=== PATIENT | male | born 1950 | race Caucasian/White ===

== ENCOUNTER 2021-01-02 16:43 | Inpatient (IN) | payer OTHER, MEDICARE ==
[~2021-01-02] VITALS: Ht 182.9 cm; Wt 77.5 kg
[~2021-01-02 16:43] MED LIST: ASPI81EC PO; CIPR500 PO; CITA20 PO; CYCL10 PO; DOXY100 PO; GABA300 PO; METF500 PO; OXYACE5T PO; ROSU10TA PO; TAMS.4ER PO
[2021-01-02 17:14] LABS: BASOPHILS ABSOLUTE AUTO 0.05 K/mm3 (0.00-0.23); BASOPHILS PERCENT AUTO 0 % (0-2); EOSINOPHILS PERCENT AUTO 0 % (0-6); Hematocrit 38.6 % (37.0-53.0); Hemoglobin 11.7 g/dL (13.5-17.5); IMMATURE GRAN ABSOLUTE AUTO 0.08 K/mm3 (0.00-0.10); IMMATURE GRAN PERCENT AUTO 0 % (0-1); LYMPHOCYTES ABSOLUTE AUTO 2.27 K/mm3 (0.84-5.20); LYMPHOCYTES PERCENT AUTO 12 % (21-46); MONOCYTES ABSOLUTE AUTO 0.99 K/mm3 (0.16-1.47); MONOCYTES PERCENT AUTO 5 % (4-13); Mean Corpuscular HGB 24.3 pg (26.0-34.0); Mean Corpuscular HGB Conc 30.3 g/dL (31.5-36.5); Mean Corpuscular Volume 80 fL (80-100); NEUTROPHILS ABSOLUTE AUTO 15.72 K/mm3 (1.96-9.15); NEUTROPHILS PERCENT AUTO 82 % (41-73); Platelet Count 398 K/mm3 (150-400); RDW Standard Deviation 43.5 fL (35.1-46.3); Red Blood Cell Count 4.82 M/mm3 (4.30-5.90); White Blood Cell Count 19.11 K/mm3 (4.00-11.30)
[2021-01-02 17:38] LABS: Alanine Aminotransfer (ALT/SGP 23 U/L (12-78); Albumin, Blood 3.5 g/dL (3.4-5.0); Albumin/Globulin Ratio 0.7 (0.8-1.8); Alk Phos 106 U/L (50-136); Anion Gap 13 mmol/L (6-16); Aspartate Aminotrans (AST/SGOT 58 U/L (12-37); Bilirubin, Total 0.5 mg/dL (0.1-1.0); Blood Urea Nitrogen 19 mg/dL (8-24); Bun/Creatinine Ratio 20.1 (12.0-20.0); CO2, Blood 20 mmol/L (21-32); Calcium, Blood 9.6 mg/dL (8.5-10.1); Chloride, Blood 100 mmol/L (98-108); Creatinine, Blood 0.95 mg/dL (0.60-1.20); Globulin, Blood 4.9 g/dL (2.2-4.0); Glomerular Filtration Rate >60 (60-); Glucose, Blood 241 mg/dL (70-99); Potassium, Blood 4.2 mmol/L (3.5-5.5); Sodium, Blood 133 mmol/L (136-145); Total Protein, Blood 8.4 g/dL (6.4-8.2)
[2021-01-02] MEDS ORDERED: ATOR80 PO (20:34)
[2021-01-02] MEDS ORDERED: GLIP5 PO (20:36)
[2021-01-02] MEDS ORDERED: HYDROCODONE-AC1 EAC7 PO (20:37)
[2021-01-02] MEDS ORDERED: METF500 PO (20:37)
[2021-01-02] MEDS ORDERED: BASAGLAR K100 UNIT/1 SC (20:38)
[2021-01-02] MEDS ORDERED: Calan Sr120 MG PO (20:39)
[2021-01-02] MEDS ORDERED: OMEP20ER PO (20:40)
[2021-01-02] MEDS ORDERED: SERT100 PO (20:40)
[2021-01-02] MEDS ORDERED: ALBU90OI INH (20:41)
[2021-01-02] MEDS ORDERED: ALBU2.5V5 NEB (20:42)
[2021-01-02] MEDS ORDERED: STIOLTO RESPIMAT4 G1 INH (20:42)
[2021-01-02] MEDS ORDERED: LOSARTAN POTAS100 M1 PO (20:43)
[2021-01-02] MEDS ORDERED: NARCAN4 M1 (20:44)
[2021-01-02] MEDS ORDERED: Aspir 8181 MG PO (21:05)
[2021-01-02] MEDS ORDERED: ASCO500 PO (21:05)
[2021-01-02] MEDS ORDERED: CYAN500 PO (21:06)
[2021-01-02] MEDS ORDERED: FISH OIL 1,2001 EAC7 PO (21:07)
[2021-01-02 21:13] LABS: International Normalized Ratio 0.98; Prothrombin Time Results 10.5 Sec (9.7-11.5)
[2021-01-02 23:52] LABS: Source, Urine Catheter
[2021-01-03 00:02] LABS: Blood, Urine 1+ (Neg); Glucose Qualitative, Urine 1+ (Neg); Ketones, Urine 1+ (Neg); Leukocyte Esterase, Urine 1+ (Neg); Nitrite, Urine Neg (Neg); Protein, Urine 2+ (Neg); Specific Gravity, Urine 1.025 (1.003-1.022); Urobilinogen, Urine 1+ (Normal)
[2021-01-03 00:07] LABS: U Amphetamine Screen Not Detected; U Barbituate Screen Not Detected; U Benzodiazapine Screen Not Detected; U Buprenorphine Screen Not Detected; U Cannabinoids Screen Not Detected; U Cocaine Screen Not Detected; U Methadone Screen Not Detected; U Methamphetamine Screen Not Detected; U Opiates Screen Not Detected; U Oxycodone Screen Not Detected; U Phencyclidine Screen Not Detected; U Propoxyphene Screen Not Detected
[2021-01-03 00:11] LABS: Appearance, Urine Clear (Clear); Bilirubin, Urine 1+ (Neg); Color, Urine Amber (P-Yellow)
[2021-01-03 00:17] LABS: Amorphous Light (0-Heavy); Bacteria Rare /hpf; Mucus Light (0-Heavy); Red Blood Cells, Urine 0-2 /hpf (0-2); Squamous Epithelial Cells Rare /hpf (Few); White Blood Cells, Urine 0-2 /hpf (0-5)
[2021-01-03 00:26] LABS: Adenovirus Not Detected (NOT DETECT); Coronavirus 229E Not Detected (NOT DETECT); Coronavirus HKU1 Not Detected (NOT DETECT); Coronavirus NL63 Not Detected (NOT DETECT)
[2021-01-03 00:27] LABS: Bordetella pertussis Not Detected (NOT DETECT); Chlamydophila pneumoniae Not Detected (NOT DETECT); Coronavirus OC43 Not Detected (NOT DETECT); Human Metapneumovirus Not Detected (NOT DETECT); Human Rhinovirus/Enterovirus Not Detected (NOT DETECT); Influenza A/2009-H1 Not Detected (NOT DETECT); Influenza A/H1 Not Detected (NOT DETECT); Influenza A/H3 Not Detected (NOT DETECT); Influenza B Not Detected (NOT DETECT); Mycoplasma pneumoniae Not Detected (NOT DETECT); Parainfluenza Virus 1 Not Detected (NOT DETECT); Parainfluenza Virus 2 Not Detected (NOT DETECT); Parainfluenza Virus 3 Not Detected (NOT DETECT); Parainfluenza Virus 4 Not Detected (NOT DETECT); Respiratory Syncytial Virus Not Detected (NOT DETECT); SARS-Cov-2 (COVID-19), BioFire Not Detected (NOT DETECT)
--- NOTE | 2021-01-03 00:30 | NUR ---
ASSUMED CARE/ICU ADMIT PT ARRIVES TO ICU VIA STRETCHER AT 2255 INTUBATED ON VENT, SEDATED WITH PROPOFOL AT 20 MCG/KG/MIN. PT TACHYPNEIC RR 30-40s, PEAK PRESSURES 30s, SCANT PINK/WHITE SECRETIONS-SUCTIONED FROM INLINE CATHETER. NOT OPENING EYES, FOLLOWING COMMANDS, OR MOVING, BUT FIGHTING VENTILATOR. 1L NS BOLUS FINISHING UP. PT HYPOTENSIVE, LEVOPHED STARTED AT 2329 AT 5 MCG/MIN, AND PROPOFOL INCREASED WHEN MAP > 60. CURRENTLY PROPOFOL IS AT 40 MCG/KG/MIN. VENT SETTINGS ARE AC 14/400/8/60%, SPO2 99-100%. PEAK PRESSURES REMAIN AT LOWER 30s, AND RR LOWER 30s. PT APPEARS TO BE MORE COMFORTABLE ON SEDATION, TOLERATING VENT WHEN NOT STIMULATED. WILL YOUSIF VENT WITH NOXIOUS STIMULI. ALEXI BEARD - DECIDED AGAINST HEPARIN GTTP. NASAL SWABS SENT FOR COVID PCR - CAME BACK NEGATIVE. CT SCAN CAME BACK NEGATIVE FOR PE. PT STABLE AT PRESENT TIME, MAP > 60, HR 80s, AFEBRILE. RR 30-35. SPO2 99%. WILL CONTINUE TO MONITOR.
--- NOTE | 2021-01-03 02:37 | NUR ---
MED REC MEDICATIONS ARE LISTED CORRECTLY ON MED REC [facility]IA [facility] DOCUMENTATION THAT WAS BROUGHT WITH PT TO ICU. WILL NEED TO BE VERIFIED WITH FAMILY AND/OR PT WHEN APPROPRIATE. ADMISSION HISTORY AND THE END OF THE ADMISSION ASSESSMENT WILL NEED TO BE FINISHED WHEN POSSIBLE.
--- NOTE | 2021-01-03 02:48 | NUR ---
IV ASSESSMENT WNL FLUSHES WELL AND HAS POSITIVE BLOOD RETURN. SITE LOOKS WNL, NO SIGNS OF INFILTRATION OR SWELLING. NO SIGNS OF COMPROMISED BLOOD FLOW SURROUNDING RIGHT AC AREA.
--- NOTE | 2021-01-03 03:00 | NUR ---
UPDATE PT APPEARS MORE COMFORTABLE WITH CPOT OF 0 ON PROPOFOL OF 40 MCG/KG/MIN, TOLERATING VENTILATOR WELL. RT - BRETT MADE CHANGES TO VENT D/T PT's IMPROVEMENT. PEEP DOWN TO 5, FIO2% DOWN TO 40% AND TIDAL VOLUMES UP TO 440 ML/BREATH. ROSS TO REDRAW ABG D/T MECHANICAL ERROR UNRELATED TO PT. NS INFUSING WIDE OPEN PER ORDER TO GIVE 2.5 L OF FLUID. PT HAS HAD 150 ML OF URINE SINCE HES ARRIVED TO ICU. LEVO INFUSING AT 5 MCG/MIN, MAP > 60. RR DOWN TO 25-33 AND CONTINUES TO HAVE MILDLY LABORED BREATHING, BUT HAS IMPROVED SINCE EARLIER TONIGHT. BED LOW AND LOCKED. DR. LU HAS ORDERED A MAX DOSE OF 7 MCG/MIN FOR LEVOPHED TO INFUSE VIA A PERIPHERAL IV, LONG SITE/IV IS ASSESSED Q2H. HE ALSO STATES THAT IF LEVOPHED DOES GET TO 7 MCG/MIN AND MAP REMAINS < 60 TO CALL HIM TO PLACE A CVC.
[2021-01-03 04:06] LABS: BASOPHILS ABSOLUTE AUTO 0.02 K/mm3 (0.00-0.23); BASOPHILS PERCENT AUTO 0 % (0-2); EOSINOPHILS PERCENT AUTO 0 % (0-6); Hematocrit 28.8 % (37.0-53.0); IMMATURE GRAN ABSOLUTE AUTO 0.07 K/mm3 (0.00-0.10); IMMATURE GRAN PERCENT AUTO 0 % (0-1); LYMPHOCYTES ABSOLUTE AUTO 1.22 K/mm3 (0.84-5.20); LYMPHOCYTES PERCENT AUTO 8 % (21-46); MONOCYTES ABSOLUTE AUTO 0.63 K/mm3 (0.16-1.47); MONOCYTES PERCENT AUTO 4 % (4-13); Mean Corpuscular HGB 24.9 pg (26.0-34.0); Mean Corpuscular HGB Conc 31.3 g/dL (31.5-36.5); Mean Corpuscular Volume 80 fL (80-100); Mean Platelet Volume 9.7 fL (9.1-12.4); NEUTROPHILS ABSOLUTE AUTO 14.19 K/mm3 (1.96-9.15); NEUTROPHILS PERCENT AUTO 88 % (41-73); Platelet Count 273 K/mm3 (150-400); RDW Coefficient Variation 14.8 % (11.7-14.2); RDW Standard Deviation 43.3 fL (35.1-46.3); Red Blood Cell Count 3.61 M/mm3 (4.30-5.90); White Blood Cell Count 16.13 K/mm3 (4.00-11.30)
[2021-01-03 04:37] LABS: Anion Gap 10 mmol/L (6-16); Blood Urea Nitrogen 23 mg/dL (8-24); Bun/Creatinine Ratio 24.8 (12.0-20.0); CO2, Blood 20 mmol/L (21-32); Calcium, Blood 7.9 mg/dL (8.5-10.1); Chloride, Blood 109 mmol/L (98-108); Creatinine, Blood 0.93 mg/dL (0.60-1.20); Glomerular Filtration Rate >60 (60-); Glucose, Blood 276 mg/dL (70-99); Potassium, Blood 4.6 mmol/L (3.5-5.5); Sodium, Blood 139 mmol/L (136-145)
[2021-01-03 05:33] LABS: PCO2 Arterial 32.7 mmHg (35-45); PO2 Arterial 82.4 mmHg (80-100); pH Blood Arterial 7.39 (7.35-7.45)
--- NOTE | 2021-01-03 05:54 | NUR ---
END OF SHIFT UPDATE CURRENT VENT SETTINGS: AC 14/420/5/40% FIO2, CURRENT GTTPs: PROPOFOL 35 MCG/KG/MIN, LEVOPHED 4 MCG/MIN, AND NS TKO. OG TUBE IS CONNECTED TO LIS, BROWN/BILE OUTPUT. OLIGURIC WITH 275 ML OF URINE FROM 2300 TILL 0530, URINE IS LESS DARK AT END OF SHIFT. 2.5 L OF NS INFUSED OVERNIGHT PER SEPSIS PROTOCOL. BP STABLE, WITH MAP > 65, THOUGH BP HAS A PULSE PRESSURE OF 20-35. PT HAVING SCANT SECRETIONS NEEDING TO BE SUCTIONED FROM ETT/TRACHEA, BUT HAVE BEEN WHITE/PINK, AND THICK. BREATH SOUNDS HAVE IMPROVED T/O NIGHT, LESS CRACKLES AUSCULTATED; HIS RESPIRATIONS ARE NO LONGER LABORED, AND HIS PEAK PRESSURES HAVE IMPROVED TO THE 20s. HOWEVER, HIS RR REMAINS ELEVATED IN THE 25-30 RANGE (IMPROVED FROM EARLIER IN SHIFT). DR. LU NOTIFIED ABOUT INCREASING TROPONIN, NO APPARENT CHANGE IN PATIENT. HE REMAINS PALE, WARM TO TOUCH, CAP REFILL <3s X 4 EXTREMITIES, WITH +2/+1 PULSES. PT RESPONDS TO NOXIOUS STIMULI (ORAL CARE AND REPOSITIONING) - BUT DOES NOT OPEN EYES, AND IS NOT SHOWING PURPOSEFUL MOVEMENT. POSITIVE FOR CORNEAL REFLEX, GAG, AND COUGH. MOVES HIS MOUTH WITH ORAL CARE, BITES ON TUBE MOMENTARILY. PROPOFOL HAS BEEN DECREASED. PT WAS ALERT AND ORIENTED X 4 PRIOR TO DETERIORATING AND REQUIRING INTUBATION IN THE ER PRIOR TO ADMISSION PER ARTIST REPRESENTATIVE. RESTRAINTS SECRUED TO PT AND BED (SWB), PT HAS PULLED ON THEM NONPURPOSEFULLY ONCE WHEN HE WAS FIRST ARRIVED IN ICU LAST NIGHT. BED LOW AND LOCKED.
--- NOTE | 2021-01-03 08:26 | NUR ---
ASSESSMENT- PT SEDATED WTIH PROPOFOL AT 35 MCG/KG/MIN, DECREASED TO 30, WILL TITRATE FOR SEDATION. NO RESPONSE TO VERBAL STIMULUS, DOES BREWSTER IN RESPONSE TO PAINFUL STIMULUS. ORALLY INTUBATED TUBE SECURE, TOLERATING VENT SETTINGS, CONTINOUS SATURATION MONITOR ON. LUNGS WITH CRACKLES BIBASILAR. SUCT SCANT CLEAR SECRETIONS. ABD SOFT, OGT TO LIS WITH GREENISH BROWN DRAINAGE. UO ADEQUATE VIA LAO, CLEAR YELLOW. BILATERAL WRIST RESTRAINTS ON FOR SAFETY. REPOSITIONED. LEVOPHED GTT AT 4 MCG/MIN FOR BP SUPPORT, ABLE TO DECREASE TO 2 MCG/MIN, PIV X 2 INTACT WITH BLOOD RETURN AT [facility] SITE WITH LEVOPHED INFUSING. NSR. HEPARIN SQ FOR DVT PROPHYLAXIS
--- NOTE | 2021-01-03 09:52 | NUR ---
BEDSIDE ECHO BEING DONE. DR. LAY HERE-UPDATED, ASSESSED PT. CHANGED TO CPAP FOR VENT TOLERANCE-RX WITH FENTANYL AND INCREASED PROPOFOL FOR INCREASED RESP RATE WITH IMPROVEMENET, BACK TO SETTINGS. HEPARIN GTT STARTED PER ORDERS. EKG DONE. REPOSITIONED. HYPOTENSIVE AFTER FENTANYL, LEVOPHED UP TO 4 MCG/MIN. PLANS FOR PICC PLACEMENT TODAY
--- NOTE | 2021-01-03 11:12 | NUR ---
Echocardiogram completed.
--- NOTE | 2021-01-03 12:29 | NUR ---
DR. MALONE SENIOR ELECTRICAL DESIGNER HERE-UPDATED.
--- NOTE | 2021-01-03 12:55 | NUR ---
UPDATE TO DR. LAY WITH TROPONIN, HAD DISCUSSED WITH DR. MALONE. PLANS FOR CONTINUED MONITORING NOW, CONTINUE HEPARIN GTT.
--- NOTE | 2021-01-03 14:30 | NUR ---
VALUABLES- TWO RINGS GIVEN TO PT'S .
--- NOTE | 2021-01-03 14:38 | NUR ---
PT WITH STABLE VS. HERE-UPDATED AND TALKED WITH DR. LAY
--- NOTE | 2021-01-03 16:00 | NUR ---
SEE ASSESSMENT. NO ACUTE CHANGES. REPOSITIONED. TOLERATING VENT
--- NOTE | 2021-01-03 18:15 | NUR ---
PICC LINE PLACE BY ASIA JIMENEZ. IV GTTS CHANGED TO PICC LINE-NS TKO, HEPARIN GTT INCREASED TO 15 UNITS/KG/HR PER PHARMACY, PROPOFOL AT 40 MCG/KG/MIN FOR SEDATION. DID TRY TO SIT UP, ANXIOUS WITH SUCTIONING. REASSURANCE GIVEN. CONTINUE TO MONITOR. UO ADEQUATE. LASIX X 2 DOSES TODAY. NO EDEMA BUT STILL CRACKLES BIBASILAR.
--- NOTE | 2021-01-03 19:35 | NUR ---
ASSUMED CARE RECEIVED REPORT FROM BARBARA PIMENTEL. PT IS POSITIONED ON HIS LEFT SIDE, SEDATED WITH PROPOFOL AT 40 MCG/KG/MIN, AND INTUBATED ON MECHANICAL VENTILATION; SETTINGS: AC 14/420/5/30% FIO2. SINUS RHYTHM, RATE 70s; BP STABLE 97/71, 78; SPO2 98%, PEAK PRESSURES 24-26, RR 20-26. HEPARIN INFUSING AT 15 UNITS/KG/HOUR BASED ON A WEIGHT OF 80 KG (VERIFIED WITH ORDER AND BARBARA MONTES DE OCA). LEVOPHED IS INFUSING AT 4 MCG/MIN AND NS INFUSING TKO. PICC LINE HAS 6 cm EXPOSED AND SITE IS CDI. LAO IS PATENT DRAINING LIGHT YELLOW URINE. BED LOW AND LOCKED.
--- NOTE | 2021-01-04 00:44 | NUR ---
UPDATE NO MAJOR CHANGES T/O SHIFT. LEVO INFUSING AT 3 MCG/MIN WITH MAP IN 70s; PROPOFOL REMAINS AT 40 MCG/KG/MIN, WHILE PT HAS ONLY REQUIRED 1 DOSE OF PRN FENTANYL TONIGHT FOR A CPOT OF 2. CURRENTLY CPOT 0 FOLLOWING MEDICATION ADMIN. PT TOLERATING VENT WELL, THOUGH, WITH NOXIOUS STIMULI (ORAL CARE, REPOSITIONING, OR ANY HANDS ON PT NURSING CARE) MAY START COUGHING OR GAGGING, AND START MOVING HIS MOUTH, BITTING TUBE. PEAK PRESSURES WILL TRANSIENTLY INCREASE TO > 30, BUT ARE LOW 20s AT REST. SPO2 97% ON FIO2 OF 30% AND PEEP OF 5. WILL CONTINUE TO MONITOR.
[2021-01-04 05:01] LABS: BASOPHILS ABSOLUTE AUTO 0.03 K/mm3 (0.00-0.23); BASOPHILS PERCENT AUTO 0 % (0-2); EOSINOPHILS ABSOLUTE AUTO 0.21 K/mm3 (0.00-0.68); EOSINOPHILS PERCENT AUTO 2 % (0-6); Hematocrit 25.7 % (37.0-53.0); Hemoglobin 7.9 g/dL (13.5-17.5); IMMATURE GRAN ABSOLUTE AUTO 0.02 K/mm3 (0.00-0.10); IMMATURE GRAN PERCENT AUTO 0 % (0-1); LYMPHOCYTES ABSOLUTE AUTO 3.58 K/mm3 (0.84-5.20); LYMPHOCYTES PERCENT AUTO 36 % (21-46); MONOCYTES ABSOLUTE AUTO 0.68 K/mm3 (0.16-1.47); MONOCYTES PERCENT AUTO 7 % (4-13); Mean Corpuscular HGB 24.8 pg (26.0-34.0); Mean Corpuscular HGB Conc 30.7 g/dL (31.5-36.5); Mean Corpuscular Volume 81 fL (80-100); Mean Platelet Volume 10.1 fL (9.1-12.4); NEUTROPHILS ABSOLUTE AUTO 5.52 K/mm3 (1.96-9.15); NEUTROPHILS PERCENT AUTO 55 % (41-73); Platelet Count 258 K/mm3 (150-400); RDW Coefficient Variation 14.7 % (11.7-14.2); RDW Standard Deviation 43.7 fL (35.1-46.3); Red Blood Cell Count 3.18 M/mm3 (4.30-5.90); White Blood Cell Count 10.04 K/mm3 (4.00-11.30)
[2021-01-04 05:25] LABS: Magnesium, Blood 1.6 mg/dL (1.6-2.4)
--- NOTE | 2021-01-04 05:41 | NUR ---
END OF SHIFT NO ACUTE CHANGES T/O NIGHT. VENT AT AC14/420/5/30%. CURRENT GTTPs: PROPOFOL 40 MCG/KG/MIN, LEVOPHED 3 MCG/MIN, HEPARIN 16 UNITS/KG/HOUR (DOSING WEIGHT 80KG), AND NS TKO. VITALS STABLE, MAP > 65. ADEQUATE URINE OUTPUT OVERNIGHT. DR LAY DID NOT WANT PT TO HAVE A SBT. CONTINUES TO ONLY RESPOND TO NOXIOUS STIMULI, AND DOESNT FOLLOW COMMANDS OR OPEN EYES. BED LOW AND LOCKED.
[2021-01-04 05:44] LABS: Alanine Aminotransfer (ALT/SGP 21 U/L (12-78); Albumin, Blood 2.4 g/dL (3.4-5.0); Albumin/Globulin Ratio 0.6 (0.8-1.8); Alk Phos 73 U/L (50-136); Anion Gap 7 mmol/L (6-16); Aspartate Aminotrans (AST/SGOT 38 U/L (12-37); Bilirubin, Total 0.2 mg/dL (0.1-1.0); Blood Urea Nitrogen 19 mg/dL (8-24); Bun/Creatinine Ratio 18.6 (12.0-20.0); CO2, Blood 27 mmol/L (21-32); Calcium, Blood 8.1 mg/dL (8.5-10.1); Chloride, Blood 107 mmol/L (98-108); Creatinine, Blood 1.02 mg/dL (0.60-1.20); Globulin, Blood 3.8 g/dL (2.2-4.0); Glomerular Filtration Rate >60 (60-); Glucose, Blood 134 mg/dL (70-99); Potassium, Blood 3.5 mmol/L (3.5-5.5); Sodium, Blood 141 mmol/L (136-145)
[2021-01-04 06:12] LABS: Total Protein, Blood 6.2 g/dL (6.4-8.2)
--- NOTE | 2021-01-04 08:15 | NUR ---
RAC SITE- IV SITE SOFT, SMALL BRUISE ABOVE SITE, BLOOD RETURN PRESENT. SITE D/C
--- NOTE | 2021-01-04 08:45 | NUR ---
ASSESSMENT- PT SEDATED WITH PROPOFOL AT 40 MCG/KG/MIN, OFF FOR ASSESSMENT. EYES OPEN, ABLE TO FOLLOW DIRECTIONS TO NOD HEAD, MOVES ALL EXTREMITIES WEAKLY. DENIES SOB OR PAIN BUT RR INCREASED TO 35 BPM, PROPOFOL RESTARTED. ORALLY INTUBATED, TUBE SECURE. LUNGS WITH BIBASILAR CRACKLES. APICAL REGULAR, NSR. SBP STABLE WITH LEVOPHED GTT AT 2 MCG/MIN. LEFT ARM PICC LINE DI. NS TKO. MAGNESIUM AND POTASSIUM REPLACEMENTS. OGT CLAMPED, NO RESIDUAL, MEDS GIVEN VIA TUBE. UO ADEQUATE VIA LAO. RESPOSITIONED. BILATERAL WRIST RESTRAINTS-EXTUBATION RISK.
--- NOTE | 2021-01-04 09:06 | NUR ---
DR. LAY HERE-UPDATED. PROPOFOL RESTARTED, NOW AT 30 MCG/KG/MIN
--- NOTE | 2021-01-04 11:26 | NUR ---
RX FOR C/O PAIN, PT AWAKE, ABLE TO FOLLOW DIRECTIONS. COPIOUS ORAL SECRETIONS.
--- NOTE | 2021-01-04 12:06 | NUR ---
TACHYCARDIC 110'S. LEVOPHED REMAINS OFF. PT AWAKE, ALERT, COOPERATIVE. ABLE TO FOLLOW DIRECTIONS. CHANGE TO CPAP WITH PS 5 PEEP 5, TIDAL VOLUMES 300 WITH RATE 32-[address] LAY HERE. PLANS FOR EXTUBATION
--- NOTE | 2021-01-04 12:19 | NUR ---
PT EXTUBATED TO NASAL CANNULA. COPIOUS ORAL SECRETIONS, PRODUCTIVE COUGH WHITE FROTHY SECRETIONS. NO WHEEZES, ABLE TO FOLLOW DIRECTIONS, ASKING APPROPRIATE QUESTIONS, VOICE WEAK, LOW. ENCOURAGED TO REST
--- NOTE | 2021-01-04 12:42 | NUR ---
PT C/O THROAT PAIN, REQUESTS PAIN RX-GIVEN. STATES NO MEMORY OF EVENTS PRIOR TO HOSPITAL, EXPLAINED PLAN OF CARE, BP STABLE. RESP [id number] BPM, QUIET, NO DISTRESS
--- NOTE | 2021-01-04 15:34 | NUR ---
REPOSITIONED FOR LINEN CHANGE. C/O BACK DISCOMFORT, RX GIVEN. ALERT, ORIENTED, COOPERATIVE BUT SOME ANXIETY. REQUESTED FOR RN TO "PUT ME OUT OF MY MISERY". EMOTIONAL SUPPORT GIVEN. UO GOOD VIA LAO. REPEAT K LEVEL ORDERED. SINUS TACH
--- NOTE | 2021-01-04 17:21 | NUR ---
DR. LAY HERE-TALKED WITH PT AND PT'S . DNR STATUS. PT WITH DECREASED SATURATIONS-CHANGED TO OXYMIZER WITH IMPROVEMENT. C/O BEING SCARED, REASSURANCE GIVEN. RX WITH MORPHINE PER ORDERS. K LEVEL NORMAL. DIURESING VIA LAO. NO S/S BLEEDING. TACHYCARDIC. HEPARIN D/C PER DR. LAY.
--- NOTE | 2021-01-04 17:23 | NUR ---
HAD ATTEMPTED SWALLOW EVAL-DID NOT TOLERATE, WET COUGH. C/O NAUSEA THAT RESOLVED. FEBRILE, COOLING MEASURES
--- NOTE | 2021-01-04 18:09 | NUR ---
C/O ANXIETY AGAIN, REPOSITIONED AND RX WITH FENTANYL WITH IMPROVEMENT. RESP RATE 40 BPM, MAINTAINING SATURATIONS WITH OXYMIZER AT 7L/MIN
--- NOTE | 2021-01-04 19:00 | NUR ---
PT AWAKE, ALERT, STATES FEELING BETTER, BREATHING EASIER. TACHY BUT HEARTRATE IMPROVED TO 120'S. REFUSES RECTAL TYLENOL, UNABLE TO TAKE PO. WILL MONITOR.
--- NOTE | 2021-01-04 19:15 | NUR ---
ASSUMPTION OF CARE BEDSIDE REPORT RECEIVED FROM FALGUNI JIMENEZ. ASSUMED CARE OF PATIENT. PATIENT A/O, IN BED, DENIED DISCOMFORTS. 7L [address] WITH SATS ABOVE 95%. TKO INFUSING TO PICC IN LUE. BLOOD PRESSURE STABLE. LAO PATENT AND DRAINING CLEAR, YELLOW URINE. PROVIDED GREEN SWAB FOR ORAL CARE. PATIENT STATED THAT WAS HELPFUL. WILL REVIEW ORDERS AND TREAT PRESCRIBED.
--- NOTE | 2021-01-05 | NUR ---
REASSESSMENT NO ACUTE CHANGES FROM INITIAL ASSESSMENT. MEDICATED FOR PAIN CHARTED, PATIENT NOW LAYING ON LEFT SIDE WITH EYES CLOSED, NO S/S OF DISTRESS. VITALS STABLE. LAO CATHETER PATENT AND DRAINING CLEAR, YELLOW URINE. WILL CONTINUE TO MONITOR. CALL LIGHT IN REACH.
[2021-01-05 04:07] LABS: BASOPHILS ABSOLUTE AUTO 0.03 K/mm3 (0.00-0.23); BASOPHILS PERCENT AUTO 0 % (0-2); EOSINOPHILS ABSOLUTE AUTO 0.01 K/mm3 (0.00-0.68); EOSINOPHILS PERCENT AUTO 0 % (0-6); Hematocrit 29.9 % (37.0-53.0); Hemoglobin 9.3 g/dL (13.5-17.5); IMMATURE GRAN ABSOLUTE AUTO 0.04 K/mm3 (0.00-0.10); IMMATURE GRAN PERCENT AUTO 0 % (0-1); LYMPHOCYTES ABSOLUTE AUTO 1.66 K/mm3 (0.84-5.20); LYMPHOCYTES PERCENT AUTO 15 % (21-46); MONOCYTES ABSOLUTE AUTO 0.72 K/mm3 (0.16-1.47); MONOCYTES PERCENT AUTO 6 % (4-13); Mean Corpuscular HGB 24.7 pg (26.0-34.0); Mean Corpuscular HGB Conc 31.1 g/dL (31.5-36.5); Mean Corpuscular Volume 79 fL (80-100); Mean Platelet Volume 10.1 fL (9.1-12.4); NEUTROPHILS ABSOLUTE AUTO 8.74 K/mm3 (1.96-9.15); NEUTROPHILS PERCENT AUTO 78 % (41-73); Platelet Count 284 K/mm3 (150-400); RDW Coefficient Variation 14.7 % (11.7-14.2); RDW Standard Deviation 42.5 fL (35.1-46.3); Red Blood Cell Count 3.77 M/mm3 (4.30-5.90)
--- NOTE | 2021-01-05 04:13 | NUR ---
REASSESSMENT NO ACUTE CHANGES FROM PREVIOUS ASSESSMENT. 7L [address] REPOSITIONED AND MEDICATED FOR REPORT OF PAIN. ORAL CARE PROVIDED. ATTEMPTED ANOTHER SMALL SIP OF WATER WITH PATIENT SITTING AT UPRIGHT ANGLE, COUGHING NOTED WITHIN SECONDS OF SWALLOWING WATER. EDUCATED PATIENT REGARDING REMAINING NPO AND WHY IT WAS NOT SAFE TO DRINK AT THIS TIME. ORAL SWABS PROVIDED. VITALS STABLE, RESPIRATIONS REMAIN IN 30-40'S BUT DECREASE WHEN PATIENT IS COMFORTABLE AND RESTING. LAO CATHETER REMAINS PATENT AND DRAINING. WILL CONTINUE TO MONITOR, CALL LIGHT IN REACH.
[2021-01-05 04:24] LABS: Alanine Aminotransfer (ALT/SGP 26 U/L (12-78); Albumin, Blood 2.7 g/dL (3.4-5.0); Albumin/Globulin Ratio 0.6 (0.8-1.8); Alk Phos 85 U/L (50-136); Anion Gap 9 mmol/L (6-16); Aspartate Aminotrans (AST/SGOT 73 U/L (12-37); Bilirubin, Total 0.4 mg/dL (0.1-1.0); Blood Urea Nitrogen 21 mg/dL (8-24); Bun/Creatinine Ratio 22.2 (12.0-20.0); CO2, Blood 26 mmol/L (21-32); Calcium, Blood 8.9 mg/dL (8.5-10.1); Chloride, Blood 106 mmol/L (98-108); Creatinine, Blood 0.95 mg/dL (0.60-1.20); Globulin, Blood 4.4 g/dL (2.2-4.0); Glomerular Filtration Rate >60 (60-); Glucose, Blood 162 mg/dL (70-99); Magnesium, Blood 1.9 mg/dL (1.6-2.4); Sodium, Blood 141 mmol/L (136-145); Total Protein, Blood 7.1 g/dL (6.4-8.2)
--- NOTE | 2021-01-05 06:39 | NUR ---
SHIFT SUMMARY NO ACUTE CHANGES THROUGH NIGHT. VITALS STABLE. RESPIRATIONS DECREASED FROM 30-40S TO 20-30S. MEDICATED FOR REPORTED BACK PAIN CHARTED, THIS AM PATIENT WITH C/O PLEURITIC PAIN WHEN HE BREATHS AND COUGHS. O2 REMAINS AT 7L OXIMIZER. NO RHYTHM CHANGES, HEART RATE HAS SLOWED FROM 120'S TO 90-100'S. LAO REMAINED PATENT AND DRAINING CLEAR, YELLOW URINE. WILL CONTINUE TO MONITOR AND REPORT TO ONCOMING RN.
--- NOTE | 2021-01-05 08:16 | NUR ---
ASSUMED CARE RECEIVED REPORT FROM BARBARA PIERCE. PT IS LYING IN BED, WOKE UP SPONTANEOUSLY, ALERT AND ORIENTED X 4. ON 7L OXYMIZER, SPO2 96%+ AT REST. SINUS TO ST, RATE 90-100s, BP STABLE - MAP > 65; LOW GRADE TEMP 100.5 (REFUSING RECTAL TYLENOL); RR IN 20-30 RANGE. APPEARS CALM AND COMFORTABLE, C/O THIRST, WANTING TO DRINK WATER - USING SWABS APPROPRIATELY. PICC LINE SITE WNL. BED LOW AND LOCKED. CALL LIGHT WITHIN REACH.
--- NOTE | 2021-01-05 15:44 | NUR ---
VITALS- RESPIRATORY RATE AND TEMP RESP RATE - THE PT's RR HAS BEEN CROSSED OVER IN THE SYSTEM INCORRECTLY - HE HAS BEEN HAVING SHALLOW RESPIRATIONS, BUT HAS BEEN BREATHING BETWEEN 20-30, AND SOMETIMES 30-36 WHEN HE WAS IN PAIN AND ANXIOUS. HE IS HAVING A PLEURITIC PAIN WITH COUGHING THAT HAS BEEN MORE MILD, BUT HIS LOWER BACK HAS BEEN BOTHERING HIM MORE. FEVER - PT HAS BEEN HAVING A LOW GRADE TEMP, THAT PEAKED AT 101.1 BUT HAS BEEN 100.0-100.9 T/O THE MAJORITY OF THE DAY. HE REFUSED TYLENOL THIS AM, AND HE REFUSED OXYCODONE STATEING IT MADE HIM CONFUSED - SO HYDROCODONE (HOME MED) WAS ORDERED INSTEAD. PT HAVING LOWER BACK PAIN (PT TAKES OPIATES AT HOME FOR CHRONIC BACK PAIN). OXYGEN - PT GOT OXYGEN TITRATED DOWN TO 4L AT 1100 AND HAS BEEN 94%+ SPO2 SINCE. PT DENIES SOB AT REST. DECONDITIONED - PT IS STILL VERY WEAK, AND OFTEN HAS DIFFICULTY WITH FINE MOTOR SKILLS, BUT HAS BEEN MOVING ALL EXTREMITIES. HE IS FAIRLY INDEPENDENT IN BED, NEEDING ASSISTANCE WITH MAJOR POSITIONING CHANGES. LAO CATHETER IS CURRENTLY IN. SWALLOWING EVAL - SEE BEDSIDE SWALLOW EVAL INTERVENTION FOR NOTE REGARDING THE EVAL. HE HAS BEEN DOING WELL WITH ICE CHIPS, AND OCCASSIONAL SIPS OF WATER WHEN HE SITS UPRIGHT AT 90 DEGREES AND USES A SPOON.
--- NOTE | 2021-01-05 19:30 | NUR ---
SHIFT SUMMARY: PATIENT XFR FROM ICU-09 THIS SHIFT. PT A&O X4; CALM AND COOPERATIVE WITH CARE. NO C/O PAIN SINCE ARRIVAL ON MEDICAL. O2 @ 5L OXYMIZER; POSSIBLE PNA. LAO IN PLACE; PATENT & DRAINING. LIFT PATIENT; AWAITING PT & OT EVALS. IV ABX CONTINUING. NPO PENDING SWALLOW EVAL; SIPS & CHIPS AT THIS TIME. REPORT GIVEN TO ONCOMING RN.
[2021-01-06 04:34] LABS: BASOPHILS ABSOLUTE AUTO 0.03 K/mm3 (0.00-0.23); BASOPHILS PERCENT AUTO 0 % (0-2); EOSINOPHILS ABSOLUTE AUTO 0.09 K/mm3 (0.00-0.68); EOSINOPHILS PERCENT AUTO 1 % (0-6); Hematocrit 28.7 % (37.0-53.0); Hemoglobin 8.9 g/dL (13.5-17.5); IMMATURE GRAN ABSOLUTE AUTO 0.03 K/mm3 (0.00-0.10); IMMATURE GRAN PERCENT AUTO 0 % (0-1); LYMPHOCYTES ABSOLUTE AUTO 1.71 K/mm3 (0.84-5.20); LYMPHOCYTES PERCENT AUTO 17 % (21-46); MONOCYTES ABSOLUTE AUTO 0.77 K/mm3 (0.16-1.47); MONOCYTES PERCENT AUTO 8 % (4-13); Mean Corpuscular HGB 24.8 pg (26.0-34.0); Mean Corpuscular Volume 80 fL (80-100); Mean Platelet Volume 9.8 fL (9.1-12.4); NEUTROPHILS ABSOLUTE AUTO 7.38 K/mm3 (1.96-9.15); NEUTROPHILS PERCENT AUTO 74 % (41-73); Platelet Count 264 K/mm3 (150-400); RDW Coefficient Variation 14.6 % (11.7-14.2); RDW Standard Deviation 42.4 fL (35.1-46.3); Red Blood Cell Count 3.59 M/mm3 (4.30-5.90); White Blood Cell Count 10.01 K/mm3 (4.00-11.30)
[2021-01-06 04:54] LABS: Alanine Aminotransfer (ALT/SGP 25 U/L (12-78); Albumin, Blood 2.6 g/dL (3.4-5.0); Albumin/Globulin Ratio 0.6 (0.8-1.8); Alk Phos 84 U/L (50-136); Anion Gap 7 mmol/L (6-16); Aspartate Aminotrans (AST/SGOT 41 U/L (12-37); Bilirubin, Total 0.4 mg/dL (0.1-1.0); Blood Urea Nitrogen 32 mg/dL (8-24); Bun/Creatinine Ratio 34.8 (12.0-20.0); CO2, Blood 27 mmol/L (21-32); Calcium, Blood 9.4 mg/dL (8.5-10.1); Chloride, Blood 107 mmol/L (98-108); Creatinine, Blood 0.92 mg/dL (0.60-1.20); Globulin, Blood 4.5 g/dL (2.2-4.0); Glomerular Filtration Rate >60 (60-); Glucose, Blood 179 mg/dL (70-99); Potassium, Blood 4.1 mmol/L (3.5-5.5); Sodium, Blood 141 mmol/L (136-145); Total Protein, Blood 7.1 g/dL (6.4-8.2)
--- NOTE | 2021-01-06 06:40 | NUR ---
SHIFT SUMMARY PATIENT ALERT AND ORIENTED. HE IS VERY WEAK AND REMAINS ON BEDREST WHILE USING BEDPAN NEEDED. PATIENT MEDICATED PER EMAR FOR PAIN NEEDED. LAO CATHETER IS PATENT AND DRAINING TO GRAVITY. PICC LINE AND IV PATENT AND FLUSHED. BED IN LOWEST POSITION WITH WHEELS LOCKED AND ALARM ON. CALL LIGHT WITHIN REACH. REPORT GIVEN TO GINO JIMENEZ.
--- NOTE | 2021-01-06 13:19 | NUR ---
Spiritual care visit conducted. Patient is sitting up in bed and alert. Patient explains how rough the last few days have been and that he is thankful to be alive. 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 Patient tells the story of his early flower his walking away from it during [place] (4yrs in the [employer]), his dive into drugs and alcohol and his climb up out to healthier living and return to his flower. He has had many years of sobriety. I normalize patient's experience, and provide pastoral skilled nursing facility counselor and prayer. Patient responds well and voices that the spiritual care visit really uplifted his spirit. I will continue to remain available to patient and family.
--- NOTE | 2021-01-06 17:53 | NUR ---
Met with pt briefly this morning, returned at his request this afternoon when his arrived, as he calls her his "short term memory". Pt and were open to interview, and we discussed pt's ongoing concerns of SOB, fatigue and vertigo. Pt states the SOB and Vertigo have caused him to stop leaving the house almost entirely, as he does not normally have the stamina to walk more than 10 feet at a time without becoming extremely SOB, and sometimes almost falling down due to vertigo. Pt states he has chronic back pain, well managed with [place], and uses stool softeners to manage his bowels. Per pt's record, he has low EF, along with interstitial lung disease and COPD. Pt also has EVELIA, but unable to tolerate the full cpap mask at home due to feeling "suffocated". Will discuss this with RT, see if pt may be a candidate for a nose mask only for c-pap. We also discussed eating smaller portions t/o the day due to air hunger when eating. Pt manages his bowels with stool softeners, and reports he drinks plenty of water normally. He is open to trying equipment as recommended such as w/c, walker, home 02. As his visit progresses, will monitor CM and MD notes, and assist with ideas for symptom management for home. Pt being seen today by PT as requested by this RN for chronic vertigo.
--- NOTE | 2021-01-06 18:40 | NUR ---
SHIFT SUMMARY PT AxOx4. PLEASANT AND COOPERATIVE WITH CARE. PT AND OT WORKED WITH PATIENT TODAY. SOME PROGRESS MADE, BUT UNABLE TO GET UP/OUT OF BED. PT C/O CHRONIC BACK AND SHOULDER PAIN T/O THE DAY. MEDICATED PER EMAR. PT IN GOOD SPIRITS ABOUT PROGRESS. REPORTS "FEELING BETTER." STILL REQUIRING 7L O2 VIA OXIMIZER. LAO CATHETER DC'D. PT SPONTANEOUSLY URINATED 150CC IN URINAL AT 1745. IN ROOM FOR VISIT TODAY, UPDATED ON PLAN. SPEECH EVAL PERFORMED TODAY AND DIET WAS UPGRADED FROM NPO. SEE ST NOTES FOR DETAILS. PT TOLERATED MEALS WELL TODAY. PT REPORTS NO BMx4 DAYS. BOWEL CARE INITIATED TODAY. NO BM BY END OF SHIFT. PT DECLINED SUPPOSITORY. PT CURRENTLY RESTING IN BED WITH CALL LIGHT IN REACH. VITALS REVIEWED. DENIES ANY FURTHER NEEDS AT THIS TIME.
[2021-01-07 06:05] LABS: BASOPHILS ABSOLUTE AUTO 0.04 K/mm3 (0.00-0.23); BASOPHILS PERCENT AUTO 0 % (0-2); EOSINOPHILS ABSOLUTE AUTO 0.19 K/mm3 (0.00-0.68); EOSINOPHILS PERCENT AUTO 2 % (0-6); Hematocrit 27.6 % (37.0-53.0); Hemoglobin 8.5 g/dL (13.5-17.5); IMMATURE GRAN ABSOLUTE AUTO 0.03 K/mm3 (0.00-0.10); IMMATURE GRAN PERCENT AUTO 0 % (0-1); LYMPHOCYTES ABSOLUTE AUTO 2.03 K/mm3 (0.84-5.20); LYMPHOCYTES PERCENT AUTO 20 % (21-46); MONOCYTES ABSOLUTE AUTO 0.87 K/mm3 (0.16-1.47); MONOCYTES PERCENT AUTO 9 % (4-13); Mean Corpuscular HGB 24.6 pg (26.0-34.0); Mean Corpuscular HGB Conc 30.8 g/dL (31.5-36.5); Mean Corpuscular Volume 80 fL (80-100); Mean Platelet Volume 10.2 fL (9.1-12.4); NEUTROPHILS ABSOLUTE AUTO 6.77 K/mm3 (1.96-9.15); NEUTROPHILS PERCENT AUTO 68 % (41-73); Platelet Count 294 K/mm3 (150-400); RDW Coefficient Variation 14.6 % (11.7-14.2); RDW Standard Deviation 42.7 fL (35.1-46.3); Red Blood Cell Count 3.45 M/mm3 (4.30-5.90); White Blood Cell Count 9.93 K/mm3 (4.00-11.30)
[2021-01-07 06:19] LABS: Anion Gap 5 mmol/L (6-16); Blood Urea Nitrogen 38 mg/dL (8-24); Bun/Creatinine Ratio 41.7 (12.0-20.0); CO2, Blood 29 mmol/L (21-32); Calcium, Blood 9.4 mg/dL (8.5-10.1); Chloride, Blood 101 mmol/L (98-108); Creatinine, Blood 0.91 mg/dL (0.60-1.20); Glomerular Filtration Rate >60 (60-); Glucose, Blood 252 mg/dL (70-99); Potassium, Blood 4.4 mmol/L (3.5-5.5); Sodium, Blood 135 mmol/L (136-145)
--- NOTE | 2021-01-07 11:16 | NUR ---
Echocardiogram using 0.50ml of Definity contrast performed by Karina Myers under my supervision.
--- NOTE | 2021-01-07 18:12 | NUR ---
SHIFT SUMMARY MEDICATED FOR LEFT SHOULDER PAIN MULTIPLE TIMES THIS SHIFT. PT WORKED WITH PHYSICAL AND OCCUPATIONAL THERAPY THIS SHIFT. PT UP IN CHAIR THIS EVENING FOR DINNER. BLOOD PRESSURE 111/75, HR 79 WHILE SITTING UP IN CHAIR. PT BECOMES VERY SHORT OF BREATH WITH ANY EXERTION AND CONTINUES TO BE ON 5L O2 VIA OXYMIZER. WILL TRY TO DECREASE ABLE. PLANS FOR PT TO GO TO [employer] CERTIFIED [employer] TOMORROW PER DR. MALONE. ORDERS FOR PT TO BE NPO AND PT AWARE. NO DISTRESS AT THIS TIME. CALL LIGHT IN REACH. WILL CONTINUE TO MONITOR AND REPORT TO ONCOMING RN.
--- NOTE | 2021-01-08 04:12 | NUR ---
SHIFT SUMMARY PT HAS BEEN AWAKE MOST OF THE NIGHT. HE WAS BEEN ANXIOUS ABOUT HIS ANGIOGRAM TODAY, AND HAS HAD DIFFICULTY SLEEPING. PT MEDICATED FOR CHRONIC PAIN X1 THIS SHIFT. PT O2 WEANED DOWN FROM 5L TO 4L DURING CHANGE OF SHIFT. HE HAS BEEN TOLERATING WELL. VITALS ARE STABLE. PT HAS BEEN NPO SINCE MIDNIGHT. PT IS REQUESTING SOMETHING TO HELP HIM RELAX BEFORE GOING DOWN TO PROCEDURE. WILL NOTIFY DAYSHIFT RN TO FOLLOW UP WITH DAY ATTENDING. NO ACUTE CHANGES OVERNIGHT. BED IN LOWEST POSITION, CALL LIGHT WITHIN REACH.
--- NOTE | 2021-01-08 10:06 | NUR ---
PT TRANSFER MED-U PT IS AOX4 AND ANXIOUS. PT TRANSFERRED TO [facility] FOR PROCEDURE AT APPROXIMATELY 0730. PT TRANSFERRED TO U AFTER PROCEDURE. THIS RN GAVE REPORT TO GAUTAM KOCH RN. PT IS AT [facility] CURRENTLY.
--- NOTE | 2021-01-08 13:48 | NUR ---
RIGHT RADIAL SITE RECOVERED PER PROTOCOL. TR BAND REMOVED AND TEGADERM AND ARMBOARD PLACED. WILL CONTINUE TO MONITOR.
--- NOTE | 2021-01-08 14:57 | NUR ---
REPORT CALLED TO BRENDA AT [facility].
--- NOTE | 2021-01-08 14:57 | NUR ---
Spiritual care visit conducted. Patient is sitting up in bed and alert. Patient's spouse, Ashley, is bedside. Patient explains about his turn for the worse and plan to send him to [place] for a heart bypass surgery. Patient tells me that he is getting worn out trying to breath and that he is hoping to be transported down there soon. He did express concern about even making it during transport because he is working so hard. Ashley admits to being very worried as well. I listen empathically, normalize their experience and provide anxiety containment and prayer. Patient and Ashley respond well and show signs of reduced stress. They voice appreciation for the visit. I will continue to remain available to patient and family.
--- NOTE | 2021-01-08 15:49 | NUR ---
WILLIE TRANSFERD TO [facility]; REPORT GIVEN TO BARBARA GUTIERREZ ASSUMING CARE OF JAZMÍN. PT TO ROOM THIS AM AT 0830 POST ANGIO WITH RIGHT RADIAL SITE, RECOVERED PER PROTOCOL. PT ORIENTED TO ROOM AND CALL LIGHT. EDUATED ON FALL RISK. PT A&Ox4. ANXIETY NOTED, NOTIFIED DR CULP, NEW ORDERS ENTERED, PT EXPRESSED RELIEFE. PT REPORTS PAIN TO BACK AND SHOULDER, MEDICATED x1 WITH FENTNYL. PT SOB WITH EXERTION, SPO2 >90% ON 4.5L O2. PT DENIES NASUEA AND DIZZINESS. REPORTS DECREASED APPETITE. VSS. NO OTHER ACUTE CHAGNES NOTED. PT LEFT ROOM VIA [facility] WITH [facility] AT 1509.
== END 2021-01-08 15:13 | disposition short-term general hospital (02) | DRG 871 ==
LOC: ER 16:43 → ICUW 21:46 → MEDS 01-05 17:05 → PCU 01-08 08:33
PROVIDERS: Internal Medicine; Nurse Practitioner Acute Care; Physician Assistant; ADMIT Internal Medicine
PROC: 0BH18EZ Insertion of Endotracheal Airway into Trachea, Via Natural or Artificial Opening Endoscopic (ICD-10-PCS; principal; 2021-01-02)
PROC: 5A1945Z Respiratory Ventilation, 24-96 Consecutive Hours (ICD-10-PCS; 2021-01-02)
PROC: 3E033XZ Introduction of Vasopressor into Peripheral Vein, Percutaneous Approach (ICD-10-PCS; 2021-01-02)
PROC: 02HV33Z Insertion of Infusion Device into Superior Vena Cava, Percutaneous Approach (ICD-10-PCS; 2021-01-04)
PROC: 0DH63UZ Insertion of Feeding Device into Stomach, Percutaneous Approach (ICD-10-PCS; 2021-01-04)
PROC: B2111ZZ Fluoroscopy of Multiple Coronary Arteries using Low Osmolar Contrast (ICD-10-PCS; 2021-01-08)
DX: A41.9 Sepsis, unspecified organism (principal); I21.4 Non-ST elevation (NSTEMI) myocardial infarction; J18.9 Pneumonia, unspecified organism; J96.01 Acute respiratory failure with hypoxia; R57.0 Cardiogenic shock; I50.21 Acute systolic (congestive) heart failure; J44.1 Chronic obstructive pulmonary disease with (acute) exacerbation; J44.0 Chronic obstructive pulmonary disease with (acute) lower respiratory infection; I11.0 Hypertensive heart disease with heart failure; R65.20 Severe sepsis without septic shock; Z66 Do not resuscitate; J98.2 Interstitial emphysema; D64.9 Anemia, unspecified; G47.33 Obstructive sleep apnea (adult) (pediatric); Z78.1 Physical restraint status; Z20.822 Contact with and (suspected) exposure to COVID-19; K21.9 Gastro-esophageal reflux disease without esophagitis; E78.5 Hyperlipidemia, unspecified; Z98.890 Other specified postprocedural states; Z87.891 Personal history of nicotine dependence; Z88.8 Allergy status to other drugs, medicaments and biological substances; Z79.4 Long term (current) use of insulin; Z79.899 Other long term (current) drug therapy
CPT/HCPCS: 0202U; 31500; 36415; 36569; 36600; 51702; 71045; 71260; 80048; 80053; 81001; 82803; 82947; 83605; 83735; 83880; 84100; 84132; 84145; 84484; 85025; 85379; 85610; 85730; 87040; 87086; 92610; 93005; 93010; 93454; 94002; 94003; 94640; 94660; 94760; 94762; 96365-59; 96375-59; 96376-59; 97110; 97162; 97166; 97530; 99152; 99291-25; A9270; C1751; C1769; C1894; C8929; C9113; J0330; J0456; J0696; J1644; J1650; J1940; J2060; J2250; J2270; J2704; J3010; J3475; J3480; J7030; J7050; J7060; Q9957; Q9967

== ENCOUNTER 2021-01-14 19:36 | Emergency (ER) | payer OTHER, MEDICARE ==
[~2021-01-14] VITALS: Ht 182.9 cm; Wt 79.8 kg
[~2021-01-14 19:36] MED LIST changes: +ALBU2.5V5 NEB; +ALBU90OI INH; +ASCO500 PO; +ATOR80 PO; +Aspir 8181 MG PO; +BASAGLAR K100 UNIT/1 SC; +CYAN500 PO; +Calan Sr120 MG PO; +FISH OIL 1,2001 EAC7 PO; +GLIP5 PO; +HYDROCODONE-AC1 EAC7 PO; +LOSARTAN POTAS100 M1 PO; +NARCAN4 M1; +OMEP20ER PO; +SERT100 PO; +STIOLTO RESPIMAT4 G1 INH
[2021-01-14] MEDS ORDERED: Ativan1 MG PO (19:47)
[2021-01-14] MEDS ORDERED: MORP20L (19:47)
[2021-01-14 21:56] LABS: Source, Urine Catheter
[2021-01-14 22:02] LABS: Appearance, Urine Cloudy (Clear); Bilirubin, Urine Neg (Neg); Blood, Urine 5+ (Neg); Color, Urine Yellow (P-Yellow); Glucose Qualitative, Urine 1+ (Neg); Ketones, Urine 2+ (Neg); Leukocyte Esterase, Urine 2+ (Neg); Nitrite, Urine Neg (Neg); Protein, Urine 3+ (Neg); Urobilinogen, Urine NORM (Normal)
[2021-01-14 22:21] LABS: Bacteria Mod /hpf; Red Blood Cells, Urine 50-100 /hpf (0-2); Squamous Epithelial Cells Not Seen /hpf (Few); Uric Acid Crystals Many /hpf
[2021-01-14 22:22] LABS: Hyaline Casts 0-2 /lpf (0-2)
== END 2021-01-14 23:00 | disposition home or self-care (01) ==
LOC: ER 19:36
PROVIDERS: Emergency Medicine
DX: T83.091A Other mechanical complication of indwelling urethral catheter, initial encounter (principal); J44.9 Chronic obstructive pulmonary disease, unspecified; I10 Essential (primary) hypertension; E78.5 Hyperlipidemia, unspecified; E11.9 Type 2 diabetes mellitus without complications; Z88.6 Allergy status to analgesic agent; Z88.8 Allergy status to other drugs, medicaments and biological substances; Z87.891 Personal history of nicotine dependence
CPT/HCPCS: 51702; 51703; 51798; 81001; 87086; 99283-25